=== PATIENT | male | born 1935 | race African-American/Black ===

== ENCOUNTER 2025-01-22 14:07 | Emergency (ER) | payer MEDICARE ==
[~2025-01-22] VITALS: Ht 170.2 cm; Wt 73.0 kg
[2025-01-22 14:11] VITALS: O2SAT 98
[2025-01-22 14:30] VITALS: TEMP 36.6
[2025-01-22] MEDS: SODIUM CHLORIDE 0.9% 500 ML IV ONE (14:56)
[2025-01-22 15:50] LABS: BASOPHILS % 0.2 % (0.0-2.0); EOSINOPHILS % 7.3 % (0.0-5.0); HEMATOCRIT. 36.3 % (42.0-52.0); HEMOGLOBIN. 11.9 g/dL (14.0-18.0); MEAN CORPUSCULAR HEMOGLOBIN 27.6 pg (28.0-32.0); MEAN CORPUSCULAR HGB CONC 32.8 g/dL (31.0-37.0); MEAN CORPUSCULAR VOLUME 84.2 fL (80.0-94.0); MEAN PLATELET VOLUME 9.9 fl (7.4-10.4); NEUTROPHILS % 46.5 % (40.0-76.0); PLATELET 156 x1000/uL (130-400); RED BLOOD CELL COUNT 4.31 mill/uL (4.7-6.1); RED CELL DISTRIBUTION WIDTH 14.3 % (11.6-14.6); WHITE BLOOD COUNT 6.8 x1000/uL (4.5-11.0)
[2025-01-22 16:04] LABS: CALCIUM 9.9 mg/dL (8.7-10.4); CARBON DIOXIDE 28 mEq/L (21-32); CHLORIDE 102 mEq/L (98-107); POTASSIUM 5.4 mEq/L (3.5-5.1); SODIUM 137 mEq/L (136-145)
[2025-01-22 16:09] LABS: CREATININE 1.3 mg/dL (0.6-1.3); GLUCOSE 85 mg/dL (70-105)
[2025-01-22 16:10] LABS: UREA NITROGEN BLOOD 17 mg/dL (9-23)
[2025-01-22 16:12] LABS: PHOSPHORUS 3.3 mg/dL (2.5-4.9)
[2025-01-22 17:42] VITALS: BP 143/104; PULSE 74; RESP 20; O2SAT 98
== END 2025-01-22 18:30 | disposition home or self-care (01) ==
LOC: ER 14:22
DX: R42 Dizziness and giddiness (principal); R53.83 Other fatigue; R53.1 Weakness; I10 Essential (primary) hypertension
CPT/HCPCS: 99284; 96360; 80048; 83735; 84100; 85025; 36415; J7030; A4606